=== PATIENT | male | born 1970 | race Caucasian/White ===

== ENCOUNTER 2020-08-13 10:06 | Outpatient (CLI) | payer MEDICARE, SELFPAY ==
--- NOTE | ~2020-08-13 | DEXA_ITS ---
Bone Density Report Name: Carlos De La Rosa JR Age: 49 Sex: Male Ethnicity: White Date of : 1970 Indication: prior fracture; seizure disorder; Referring Provider: ALBA CARNES Study: Bone densitometry was performed. Exam Date: August 13, 2020 Accession number: [id number] Bone Density: Region BMD T-score Z-score Classification AP Spine (L1-L4) 0.988 -0.9 -0.6 Normal Femoral Neck (Left) 0.771 -1.2 -0.4 Osteopenia Total Hip (Left) 1.065 0.2 0.5 Normal Total Hip Bilateral Avg 1.079 0.3 0.6 Normal Femoral Neck (Right) 0.791 -1.0 -0.3 Normal Total Hip (Right) 1.092 0.4 0.7 Normal World Health Organization criteria for BMD impression classify patients as: Normal (T-score at or above -1.0), Osteopenia (T-score between -1.0 and -2.5), or Osteoporosis (T-score at or below -2.5). 10-year Fracture Risk(1): Major Osteoporotic Fracture 6.4% Hip Fracture 0.8% Reported Risk Factors: [place] (), Neck BMD=0.771, BMI=28.9, previous fracture, smoking (1) FRAX(R) Version 3.08. Fracture probability calculated for an untreated patient. Fracture probability may be lower if the patient has received treatment. Clinical Information Provided by Patient: Has had a low trauma fracture Smokes Has the following medical conditions: Any Seizure Disorders Patient maximum height was 68 No regular weight bearing exercise Does not regularly consume dairy products Impression: The patient has low bone mass, based on the Left Femoral Neck T-score. The patient has an estimated ten-year risk of hip fracture of 0.8% and an estimated ten-year risk of major fracture of 6.4%, based on the WHO FRAX algorithm. The patient has risk factors, including: smoking, previous fracture. Discussion: BONE DENSITY IS LOW AT ONE OR MORE SKELETAL SITES. This patient's lowest T-score is low at one or more skeletal sites. It meets the World Health Organization's (WHO) criteria for ?low bone mass? (T-score between -1.0 and -2.5). The patient's 10-year risk of fracture as calculated by FRAX is less than the threshold where pharmacological therapy is recommended by the National Osteoporosis Foundation (NOF). However, all treatment decisions require clinical judgment and consideration of individual patient factors, including patient preferences, comorbidities, previous drug use, risk factors not captured in the FRAX model (e.g., frailty, falls, vitamin D deficiency, increased bone turnover, interval significant decline in bone density) and possible under or overestimation of fracture risk by FRAX. The patient should follow a healthful lifestyle (good nutrition with adequate calcium and vitamin D, and appropriate weight-bearing exercise). Follow-Up: Consider repeating this study in 2 to 3 years to reassess this patient's status, or sooner if there is
== END 2020-08-13 10:07 | disposition home or self-care (01) ==
PROVIDERS: PCP Internal Medicine; Visit Provider Psychiatry & Neurology Neurology
DX: M81.0 Age-related osteoporosis without current pathological fracture (principal); M85.852 Other specified disorders of bone density and structure, left thigh
CPT/HCPCS: 77080

== ENCOUNTER 2020-11-20 07:46 | Outpatient (CLI) | payer MEDICARE, SELFPAY ==
--- NOTE | ~2020-11-20 | NM_ITS ---
NM bone scan whole body INDICATION: Secondary malignancy of the bone. TECHNIQUE: The patient was injected with 24.6 mCi Tc 99m HDP. Gamma camera images of the region of i nterest and whole body were obtained. COMPARISON: None FINDINGS: Mild focal uptake in 2 right ribs posteriorly. There is mild symmetric uptake in the should ers, elbows, knees and right ankle, consistent with degenerative joint disease. IMPRESSION: 1: Mild uptake in 2 right ribs posteriorly on the posterior image, possibly posttraumatic. 2: Mild bilateral polyarticular uptake, consistent with degenerative joint disease. Reviewed, dictated and finalized at location A. L[employer] P[employer]ICIAN IMPRESSION: 1: Mild uptake in 2 right ribs posteriorly on the posterior image, possibly po sttraumatic. 2: Mild bilateral polyarticular uptake, consistent with degenerative joint dis ease.
== END 2020-11-20 07:47 | disposition home or self-care (01) ==
PROVIDERS: PCP Internal Medicine; Visit Provider Psychiatry & Neurology Neurology
DX: C79.51 Secondary malignant neoplasm of bone (principal); R93.7 Abnormal findings on diagnostic imaging of other parts of musculoskeletal system
CPT/HCPCS: 78306; A9561

== ENCOUNTER 2021-08-13 12:37 | Outpatient (CLI) | payer MEDICARE, SELFPAY ==
--- NOTE | ~2021-08-13 | MR_ITS ---
EXAMINATION: MR cervical spine wo con EXAM DATE: 08/13/2021 14:17 INDICATION: Complains of pain with difficulties in ambulation. TECHNIQUE: Multi-sequential, multiplanar MR images of the cervical spine were obtained without contra st. Axial T2, axial T2 MERGE sequence. Sagittal T1, T2, T2 fat saturation images also obtained. Th ere is no prior study for comparison. FINDINGS: There is moderate disc disease at C6-7, mild to moderate loss of the C3-4 and 4-5 disc hei ght. There is a disc protrusion at T2-3 indenting the thoracic spinal cord without signal change. The spinal cord signal intensity and intrinsic morphology is normal. Cervicomedullary junction is normal in appearance. The vertebral bodies are aligned in the AP dimension. There are no suspicious marrow signal abnormalities. Paraspinal soft tissue is unremarkable. Level by level evaluation: C2-C3: Disc does not extend beyond the endplate margin. Uncovertebral joint arthropathy: Mild left. Facet joint arthropathy: None. Neural foraminal stenosis: No stenosis. Central canal stenosis: No stenosis. C3-C4: There is a mild diffuse disc bulge. Uncovertebral joint arthropathy: Mild bilateral. Facet joint arthropathy: Mild bilateral. Neural foraminal stenosis: No stenosis. Central canal stenosis: No stenosis. C4-C5: There is a mild diffuse disc bulge. Uncovertebral joint arthropathy: Mild to moderate right, mild left. Facet joint arthropathy: Mild bilateral. Neural foraminal stenosis: Mild to moderate right, mild left. Central canal stenosis: No stenosis. C5-C6: There is a mild diffuse disc bulge. Uncovertebral joint arthropathy: Mild to moderate left, mild right. Facet joint arthropathy: Mild bilateral. Neural foraminal stenosis: Mild bilateral. Central canal stenosis: No stenosis. C6-C7: There is a mild diffuse disc bulge. Uncovertebral joint arthropathy: Moderate right, mild to moderate left. Facet joint arthropathy: Mild bilateral. Neural foraminal stenosis: Moderate right, mild to moderate left. Central canal stenosis: Mild. C7-T1: Disc does not extend beyond the endplate margin. Uncovertebral joint arthropathy: Mild bilateral. Facet joint arthropathy: Mild bilateral. Neural foraminal stenosis: No stenosis. Central canal stenosis: No stenosis. IMPRESSION: 1. Cervical spondylosis, most advanced at C6-7. Reviewed, dictated and finalized at location A.
--- NOTE | ~2021-08-13 | MR_ITS ---
EXAMINATION: MR thoracic spine wo con EXAM DATE: 08/13/2021 14:17 INDICATION: Thoracic pain. Difficulty ambulating. TECHNIQUE: Multi-sequential, multiplanar MR images of the thoracic spine were obtained without contra st. Sagittal T1, T2, T2 fat saturation, axial T2 weighted images reviewed. Correlation is made to MR cervical spine same date. FINDINGS: The spinal cord signal intensity and intrinsic morphology is normal. There is moderate mid and lower thoracic disc disease with small disc bulges and protrusions, moderate size Schmorl's nodes at many of the endplates. There is central disc protrusion at T2-3 is indenting the anterior aspect of the cord but no cord sharonda ma. This is causing mild central canal stenosis. Otherwise the thoracic central canal and neural fora men widely patent. Mild diffuse loss of mid thoracic vertebral body height without bone marrow edema, no acute fracture. There is mild to moderate thoracic facet arthropathy. Paraspinal soft tissue is unremarkable. There are no suspicious marrow signal abnormalities. IMPRESSION: Moderate thoracic disc disease, mild to moderate arthropathy. Reviewed, dictated and finalized at location A.
== END 2021-08-13 12:38 | disposition home or self-care (01) ==
PROVIDERS: PCP Internal Medicine; Visit Provider Psychiatry & Neurology Neurology
DX: M47.14 Other spondylosis with myelopathy, thoracic region (principal); M47.23 Other spondylosis with radiculopathy, cervicothoracic region; M48.03 Spinal stenosis, cervicothoracic region
CPT/HCPCS: 72141; 72146

== ENCOUNTER 2023-03-24 05:36 | Day surgery (SDC) | payer MEDICARE, SELFPAY ==
[2023-03-10 15:08] VITALS: BMI 28.9
--- NOTE | 2023-03-23 20:38 | PM.HPGS ---
History of Present Illness History of Present Illness Consent: Risks, benefits, and alternatives have been discussed and questions answered. Patient agrees to proceed with procedure. Chief complaint: dysphagia, neoplasm screening Narrative: Carlos De La Rosa Jr. is a 52 year old male with dysphagiaa and history of stricture, also due for colon cncer screening. He has been having difficulty swallowing solid food for several months. He has a great deal of burning in his chest sometimes going up into his throat and feeling swollen in the neck. He admits that he stop taking all the medications that he had been on. He had been on numerous medications and when on a biologic for ankylosing spondylitis. He feels so much better now that he is not taking all these medications. Review of Systems Review of Systems: All systems reviewed & are unremarkable except as noted in HPI and below PMFSH Social History Social History Smoking packs per day: 0.5 Smoking cigarettes per day: 10.0 Years smoked: 30 Smoking pack-years: 15.00 Smoking status: Current every day smoker Alcohol intake: former Meds Home Medications and Allergies Home Medications Medication Instructions Recorded Confirmed Type baclofen 5 mg tablet 5 mg PO TID 07/01/21 03/10/23 History ibuprofen 800 mg tablet 800 mg PO TID 07/01/21 03/10/23 History meloxicam 15 mg tablet 15 mg PO DAILY 07/01/21 03/10/23 History simvastatin 20 mg tablet (Zocor) 20 mg PO DAILY 07/01/21 03/10/23 History tamsulosin 0.4 mg capsule 0.4 mg PO .COMPLEX 07/01/21 03/10/23 History hydrocodone 10 mg-acetaminophen 1 tablet PO Q4H PRN pain #175 tabs 08/25/21 03/10/23 Rx 325 mg tablet clorazepate dipotassium 15 mg 15 mg PO TID #90 tabs 10/30/21 03/10/23 Rx tablet acetaminophen 500 mg tablet 500 mg PO Q6H PRN Pain 11/12/21 03/10/23 History (Tylenol Extra Strength) clorazepate dipotassium 15 mg 7.5 mg PO TID 11/12/21 03/10/23 History tablet folic acid 1 mg tablet 1 mg PO DAILY 11/12/21 03/10/23 History gabapentin 300 mg capsule 300 mg PO DAILY 11/12/21 03/10/23 History magnesium 250 mg tablet 250 mg PO BID 11/12/21 03/10/23 History methotrexate 2.5 mg/mL oral 2.5 mg PO .COMPLEX 11/12/21 03/10/23 History solution multivitamin (Daily Multi-Vitamin 1 tablet PO DAILY 11/12/21 03/10/23 History tablet) tamsulosin 0.4 mg capsule 0.4 mg PO DAILY 11/12/21 03/10/23 History atorvastatin 40 mg tablet 40 mg PO DAILY 03/10/23 03/10/23 History Allergies Allergy/AdvReac Type Severity Reaction Status Date / Time No Known Allergies Allergy Verified 03/24/23 11:40 Exam Const: General: alert Orientation/consciousness: patient oriented x3 Resp: Auscultation: clear to auscultation bilaterally Cardio: Rhythm: regular rhythm GI: GI Palp: Yes Soft to palpation and No Tenderness to palpation present (GI) Neuro: General: patient oriented x3 Assessment and Plan Assessment and plan (1) Dysphagia: Code(s): R13.10 - Dysphagia, unspecified Status: Acute Assessment and Plan: EGD with possible biopsy or dilatation or cautery. (2) Colon cancer screening: Code(s): Z12.11 - Encounter for screening for malignant neoplasm of colon Status: Acute Assessment and Plan: Colonoscopy with possible biopsy or polypectomy or cautery or injection of substances.
[2023-03-24 11:43] VITALS: BP 143/95; PULSE 78; RESP 18; TEMP 36.3; O2SAT 99
[2023-03-24] MEDS: LACTATED RINGERS 1,000 ML 150 ML IV CONT (11:52)
--- NOTE | 2023-03-24 12:19 | WPDANESEPPF ---
Anes - Initial Pre Proc Eval Procedure: Operation Date: 03/24/23 12:30 Proposed Procedures p Esophagogastroduodenoscopy & Screening Colonoscopy - Connor Elizabeth MD Date/Time: 03/24/23 12:19 Surgeon: Connor Elizabeth MD Pre Op Diagnosis: dysphagia, neoplasm screening Patient Data Age: 52 Gender: M Height: 1.73 m Weight: 80.3 kg Last Vital Signs Temp 97.3 F L 03/24/23 11:43 Pulse 78 03/24/23 11:43 Resp 18 03/24/23 11:43 BP 143/95 H 03/24/23 11:43 Pulse Ox 99 03/24/23 11:43 O2 Del Method Room Air 03/24/23 11:43 Allergies Allergy/AdvReac Type Severity Reaction Status Date / Time No Known Allergies Allergy Verified 03/24/23 11:40 Home Medications Medication Instructions Recorded Confirmed Type baclofen 5 mg tablet 5 mg PO TID 07/01/21 03/10/23 History ibuprofen 800 mg tablet 800 mg PO TID 07/01/21 03/10/23 History meloxicam 15 mg tablet 15 mg PO DAILY 07/01/21 03/10/23 History simvastatin 20 mg tablet (Zocor) 20 mg PO DAILY 07/01/21 03/10/23 History tamsulosin 0.4 mg capsule 0.4 mg PO .COMPLEX 07/01/21 03/10/23 History hydrocodone 10 mg-acetaminophen 1 tablet PO Q4H PRN pain #175 tabs 08/25/21 03/10/23 Rx 325 mg tablet clorazepate dipotassium 15 mg 15 mg PO TID #90 tabs 10/30/21 03/10/23 Rx tablet acetaminophen 500 mg tablet 500 mg PO Q6H PRN Pain 11/12/21 03/10/23 History (Tylenol Extra Strength) clorazepate dipotassium 15 mg 7.5 mg PO TID 11/12/21 03/10/23 History tablet folic acid 1 mg tablet 1 mg PO DAILY 11/12/21 03/10/23 History gabapentin 300 mg capsule 300 mg PO DAILY 11/12/21 03/10/23 History magnesium 250 mg tablet 250 mg PO BID 11/12/21 03/10/23 History methotrexate 2.5 mg/mL oral 2.5 mg PO .COMPLEX 11/12/21 03/10/23 History solution multivitamin (Daily Multi-Vitamin 1 tablet PO DAILY 11/12/21 03/10/23 History tablet) tamsulosin 0.4 mg capsule 0.4 mg PO DAILY 11/12/21 03/10/23 History atorvastatin 40 mg tablet 40 mg PO DAILY 03/10/23 03/10/23 History Patient hx anesthesia problems: none Family hx anesthesia problems: none Results Review: All pre-operative results and documents have been reviewed as part of the pre-operative evaluation. [facility] Social History Social History Smoking packs per day: 0.5 Smoking cigarettes per day: 10.0 Years smoked: 30 Smoking pack-years: 15.00 Smoking status: Current every day smoker Alcohol intake: former Anes - Eval Final PreProcedure Day of Procedure 03/24/23 12:19 Patient weight: normal Heart: regular rate and rhythm Lungs: clear to auscultation Airway: Mallampati scale class II Neurological: alert and oriented Last oral intake: >/= 8 hours ASA classification: III Emergent: no Anesthetic plan: proceed Anesthesia type and monitoring: general GIVS and standard monitoring Results Review: All pre-operative results and documents have been reviewed as part of the pre-operative evaluation. Informed Consent: The patient's anesthetic plan and its attendant risks and benefits were discussed with the patient/family/POA. Questions were solicited and answers provided to the satisfaction of the patient/family/POA.
--- NOTE | 2023-03-24 12:26 | SUR.PREOP ---
1145: DR VALDIVIA NOTIFIED PT ATE 2 CARRANZA, EGG, AND CHEESE SANDWICHES YESTERDAY AT 10AM BEFORE HE STARTED HIS BOWEL PREP. PT ONLY HAD CLEAR LIQUIDS FROM THAT POINT FORWARD AND HAS BEEN NPO SINCE MIDNIGHT EXCEPT FOR A SMALL SIP OF WATER WITH HIS PAIN PILL AT 0800 THIS AM. NO NEW ORDERS RECEIVED FROM DR VALDIVIA AND HE WILL BE SEEING PT.
[2023-03-24] MEDS: BENZOCAINE (*SP) 60 ML SPRAY CAN (HURRICAINE) 1 SPRAY MUCOUS MEM (12:34)
--- NOTE | 2023-03-24 12:45 | SUR.OPER ---
EGD: Start 1231, End 1236 Colon: Start 1244, End 1254
[2023-03-24 12:57] VITALS: BP 90/60; PULSE 57; RESP 36; O2SAT 100
[2023-03-24 13:07] VITALS: BP 127/81; PULSE 62; RESP 19; O2SAT 98
[2023-03-24 13:17] VITALS: BP 135/79; PULSE 63; RESP 24; O2SAT 99
== END 2023-03-24 13:31 | disposition home or self-care (01) ==
PROVIDERS: PCP Internal Medicine; Visit Provider Internal Medicine Gastroenterology
PROC: 0DJ08ZZ Inspection of Upper Intestinal Tract, Via Natural or Artificial Opening Endoscopic (ICD-10-PCS; CPT 43235; principal; 2023-03-24 12:30)
DX: Z12.11 Encounter for screening for malignant neoplasm of colon (principal); K57.30 Diverticulosis of large intestine without perforation or abscess without bleeding; K22.2 Esophageal obstruction; K21.00 Gastro-esophageal reflux disease with esophagitis, without bleeding; F17.210 Nicotine dependence, cigarettes, uncomplicated
CPT/HCPCS: 43239; G0121; 87081; C1726; J2704; J7120

== ENCOUNTER 2025-10-18 02:11 | Day surgery (SDC) | payer MEDICARE, SELFPAY ==
--- NOTE | 2025-10-04 12:13 | PM.HPGS ---
History of Present Illness History of Present Illness Consent: Risks, benefits, and alternatives have been discussed and questions answered. Patient agrees to proceed with procedure. Chief complaint: elevated PSA Narrative: Carlos De La Rosa Jr. is a 54 year old male: [id number]: ?DK: PSA: 4.9 ?4K score: 9.0 ?The probability of having aggressive prostate cancer in all ? Americans and Non- Americans by 4Kscore ?4KScore Range ?% Probability ?95% CI ?<5.0 ?4.1% ?2.1%, ?7.9% ?5.0 to <10.0 ?9.6% ?5.8%, 15.5% ?10.0 to <20.0 ?19.7% ?14.8%, 25.8% ?> or = ?20.0 ?49.4% ?44.5%, 54.3% ?> or = ?20.0 ?49.4% ?44.5%, 54.3% 04/2025: ?DK: mpMRI: - volume: 68gm ?- PI-RADS 5 right PZ post-lat. base-mid prostate ?No bx. done 07/18/25: ?Care transferred to Dr. Sun after Dr. Lema usp With this abnormal PSA elevation and MRI findings patient has elected for a UroNav transrectal prostate biopsy. He is aware the risk including, but not limited to, failure to diagnose prostate cancer, need for additional therapy, hematuria, rectal bleeding and systemic infection Review of Systems Review of Systems: All systems reviewed & are unremarkable except as noted in HPI and below PMFSH Social History Social History Smoking packs per day: 0.5 Smoking cigarettes per day: 10.0 Years smoked: 30 Smoking pack-years: 15.00 Smoking status: Current every day smoker Alcohol intake: former Meds Home Medications and Allergies Home Medications ?Medication ?Instructions ?Recorded ?Confirmed ?Type baclofen 5 mg tablet 5 mg PO TID 07/01/21 03/10/23 History ibuprofen 800 mg tablet 800 mg PO TID 07/01/21 03/10/23 History meloxicam 15 mg tablet 15 mg PO DAILY 07/01/21 03/10/23 History simvastatin 20 mg tablet (Zocor) 20 mg PO DAILY 07/01/21 03/10/23 History tamsulosin 0.4 mg capsule 0.4 mg PO .COMPLEX 07/01/21 03/10/23 History hydrocodone 10 mg-acetaminophen 1 tablet PO Q4H PRN pain #175 tabs 08/25/21 03/10/23 Rx 325 mg tablet clorazepate dipotassium 15 mg 15 mg PO TID #90 tabs 10/30/21 03/10/23 Rx tablet acetaminophen 500 mg tablet 500 mg PO Q6H PRN Pain 11/12/21 03/10/23 History (Tylenol Extra Strength) clorazepate dipotassium 15 mg 7.5 mg PO TID 11/12/21 03/10/23 History tablet folic acid 1 mg tablet 1 mg PO DAILY 11/12/21 03/10/23 History gabapentin 300 mg capsule 300 mg PO DAILY 11/12/21 03/10/23 History magnesium 250 mg tablet 250 mg PO BID 11/12/21 03/10/23 History methotrexate 2.5 mg/mL oral 2.5 mg PO .COMPLEX 11/12/21 03/10/23 History solution multivitamin (Daily Multi-Vitamin 1 tablet PO DAILY 11/12/21 03/10/23 History tablet) tamsulosin 0.4 mg capsule 0.4 mg PO DAILY 11/12/21 03/10/23 History atorvastatin 40 mg tablet 40 mg PO DAILY 03/10/23 03/10/23 History pantoprazole 40 mg tablet,delayed 40 mg PO QAM #30 tabs 03/24/23 Rx release Allergies Allergy/AdvReac Type Severity Reaction Status Date / Time No Known Allergies Allergy Verified 03/24/23 11:40 Exam Const: General: no acute distress Resp: Effort & Inspection: normal respiratory effort GI: Inspection: non-distended GI Palp: No abdominal tenderness and No Guarding due to palpation present (GI) Auscultation: normal bowel sounds Assessment and Plan Assessment and plan (1) Elevated PSA: Code(s): R97.20 - Elevated prostate specific antigen [PSA] Status: Acute Assessment and Plan: UroNav transrectal prostate biopsy
[2025-10-09 13:41] VITALS: BMI 26.6
--- NOTE | 2025-10-09 14:09 | PC.NURSE ---
[facility] has started construction of its new state of the art ER which will open Spring 2026. With this, we anticipate parking may be a challenge for some our surgical patients and families. Parking spaces are limited but are available for all Surgical, obstetrics, and ER patients sharing this lot. If you arrive and find you are having a hard time finding a parking space, please note that we understand the challenges, please drive around the hospital and park near Hospital Entrance 1. When you enter this entrance, you can ask a volunteer to direct or take you back to the surgical waiting area to check in. We appreciate everyone?s understanding of these expected challenges while we build for your future. Report to the Outpatient Waiting Room, entrance under the green pavilion located off [address], at time _0600 on date __10/18/2025 . Planned Procedure Time: __0730 .? Time changes happen often and if your time is changed the preop area will call you the afternoon before. - You and your visitor will be asked to self-screen and do not enter if you have any COVID symptoms. Please call surgeon if you need to reschedule. - A mask is optional within the hospital at this time. Patients may have clear liquids (water, carbonated beverages, clear teas, apple juice) until 3 hours prior to surgery with a maximum of 20 ounces. - No food from midnight until time of surgery and no smoking, or chewing tobacco (or any form of nicotine). No chewing gum, candy or mints. - Infants may have breast milk until 4 hours before surgery, formula 6 hours prior to surgery. - Children will be allowed to drink immediately following surgery.? If applicable, please bring a bottle or sippy cup to assist with drinking. Juice, water, soda, and popsicles are readily available.? For infants on formula, please bring formula the day of surgery.? Pacifiers are allowed. Take only the following medications with a SIP of water on the morning of surgery: _N/A DO NOT STOP ANY OF YOUR OTHER PRESCRIPTION MEDICATIONS PRIOR TO SURGERY EXCEPT THE FOLLOWING Hold all vitamins and supplements for 3 days per anesthesiologist. Medications to discontinue per physician ___N/A Date to take last dose__N/A Please no make-up, nail urdu, hairspray, perfume, deodorant, or body powder the day of surgery.? No jewelry (including any body piercings) or valuables the day of surgery, leave them at home.? Please take a shower or bath the night before, or the morning of, surgery with an antibacterial soap.? Wear comfortable, loose fitting clothing.? Children are encouraged to wear pajamas. - Jewelry must be removed prior to entering the operating room.? Rings and piercings that are not removed may be cut off. - The hospital will not accept responsibility for valuables.? - Please leave all valuables, including medications, at home the day of surgery. If you are going home after surgery, a licensed fence post driver must drive you home.? - NO public transportation without another adult if you receive anesthesia. - We recommend that an adult stay with you for 24 hours following discharge. - We also recommend that you do not drive, make important decision, drink alcoholic beverages, or take any drugs that were not prescribed by your health care provider for at least 24 hours after your discharge time. For Pediatric surgeries, we recommend two adults accompany the child home. Follow any additional instructions given to you from your surgeon. Telephone instructions given to __Carlos and asked if any additional questions and then verbalized understanding. Patient advised to call surgeon office or pre surgery nurse liaison [phone] if any additional questions.
--- NOTE | 2025-10-18 06:29 | WPDHPUPDATE1 ---
History and Physical Update Update Date/Time: 10/18/25 06:29 History and Physical has been reviewed, including an updated exam of the patient. There are NO changes in the patient's condition. Risks, benefits, and alternatives have been discussed and questions answered. Patient agrees to proceed with procedure.
[2025-10-18 06:30] VITALS: BP 134/86; PULSE 60; RESP 18; TEMP 36.5; O2SAT 99
--- NOTE | 2025-10-18 06:49 | S_PTH ---
PATIENT: Carlos De La Rosa Jr. LOC: [facility] U#:[id number] AGE/SX: 54/M ROOM: RE10/18/[address]: Bradley Sun MD : 1970 BED: DIS: 10/18/2025 SPEC #: [id number] RECD: 10/18/25 08:13 STATUS: KIP RE #: [id number] ANOOP: 10/18/25 06:[address]: Bradley Sun DEPT: [facility] Surgical RECD BY: Nancy Paz ENTERED: 10/18/25 08:14 SP TYPE: Surgical OTHR DR: David Everett, Tissues: A - Prostate Bx B - Prostate Bx C - Prostate Bx D - Prostate Bx E - Prostate Bx F - Prostate Bx G - Prostate Bx H - Prostate Bx I - Prostate Bx J - Prostate Bx K - Prostate Bx L - Prostate Bx M - Prostate Bx Procedures: Unstained Slides Hematoxylin and Eosin Stain Prostate Biopsy
[2025-10-18] MEDS: LACTATED RINGERS 1,000 ML 30 ML IV CONT (06:55)
--- NOTE | 2025-10-18 07:09 | P.PNAN_ITS ---
Anes - Initial Pre Proc Eval Procedure: Operation Date: 10/18/25 07:30 Proposed Procedures p Trans Rectal Ultrasound Fusion Guided Prostate Biopsy - Bradley Sun MD Date/Time: 10/18/25 07:09 Surgeon: Bradley Sun MD Pre Op Diagnosis: elevated PSA Patient Data Age: 54 Gender: M Height: 1.73 m Weight: 82.5 kg Last Vital Signs Temp 36.5 C 10/18/25 06:30 Pulse 60 10/18/25 06:30 Resp 18 10/18/25 06:30 BP 134/86 10/18/25 06:30 Pulse Ox 99 10/18/25 06:30 O2 Del Method Room Air 10/18/25 06:30 Allergies Allergy/AdvReac Type Severity Reaction Status Date / Time No Known Allergies Allergy Verified 10/18/25 06:45 Home Medications ?Medication ?Instructions ?Recorded ?Confirmed ?Type acetaminophen 500 mg tablet 500 mg PO Q6H PRN Pain 10/09/25 History (Tylenol Extra Strength) hydroxychloroquine 200 mg tablet 200 mg PO DAILY 10/0910/18/25 History Patient hx anesthesia problems: none Family hx anesthesia problems: none Results Review: All pre-operative results and documents have been reviewed as part of the pre- operative evaluation. [facility] Past Medical History Medical History (Updated 10/18/25 @ 07:10 by Ranjith Castillo DO) Seizure no medication, 01/2025 Hyperlipidemia Social History Social History Smoking packs per day: 1 Smoking cigarettes per day: 20.0 Years smoked: 30 Smoking pack-years: 30.00 Smoking status: Current every day smoker Tobacco type: cigarettes Alcohol intake: current Alcohol use details: Socially, maybe 12 per month Substance use: never Living arrangements: with family Spiritual care concerns: No Anes - Eval Final PreProcedure Day of Procedure 10/18/25 07:09 Patient weight: overweight Heart: regular rate and rhythm Lungs: clear to auscultation Airway: Mallampati scale class II and special considerations poor dentition Neurological: alert and oriented Last oral intake: >/= 8 hours ASA classification: III Emergent: no Anesthetic plan: proceed Anesthesia type and monitoring: general ETT and standard monitoring Results Review: All pre-operative results and documents have been reviewed as part of the pre- operative evaluation. Informed Consent: The patient's anesthetic plan and its attendant risks and benefits were discussed with the patient/family/POA. Questions were solicited and answers provided to the satisfaction of the patient/family/POA.
[2025-10-18] MEDS: cefTRIAXone 1 GM in SODIUM CHLORIDE 0.9% IV 50 ML 100 ML IVPB (07:34)
[2025-10-18 07:56] VITALS: BP 90/28; PULSE 67; RESP 18; O2SAT 96
--- NOTE | 2025-10-18 07:59 | W.PM.PROC2 ---
Procedure Note - Detailed Date of Procedure 10/18/25 Pre-op Diagnosis Elevated PSA / Abnormal Prostate MRI Post-op Diagnosis Same Procedure Performed UroNav prostate biopsy Surgeon Bradley Sun MD Anesthesia General Description of Procedure Patient is brought to the operative suite where he is positioned in the left lateral position. Systemic sedation is administered per the anesthesia department. Surgical time-out is undertaken and it's verified the patient has received preoperative antibiotics. Transrectal ultrasonography is undertaken with a standard transrectal probe. The mNectar system is used to superimpose his previously obtained mpMRI prostate images on the real-time transrectal ultrasond images. Prostate volume is calculated at []cc. On the previous mpMRI there are one region of interest. Using the transrectal needle design for prostate biopsies 3 cores from each region of interest her obtain. We then proceeded with a standard 12 core prostate biopsy. Transrectal probe was removed and patient taken to recovery room having tolerated the procedure well. Blood loss was less than 10 cc. Estimated Blood Loss 5
[2025-10-18 08:25] VITALS: BP 103/61; PULSE 73; RESP 16
[2025-10-18 08:55] VITALS: BP 127/68; PULSE 57; RESP 16
== END 2025-10-18 09:05 | disposition home or self-care (01) ==
PROVIDERS: PCP Internal Medicine; Visit Provider Urology
PROC: (CPT 55700; principal; 2025-10-18 07:30)
DX: N42.89 Other specified disorders of prostate (principal); R97.20 Elevated prostate specific antigen [PSA]; E78.5 Hyperlipidemia, unspecified; R56.9 Unspecified convulsions; F17.210 Nicotine dependence, cigarettes, uncomplicated; Z79.891 Long term (current) use of opiate analgesic; Z79.1 Long term (current) use of non-steroidal anti-inflammatories (NSAID)
CPT/HCPCS: 76872; 55700; G0416; J0696; J2003; J2250; J2704; J3010; J7120